=== PATIENT | female | born 1975 | race Caucasian/White ===

== ENCOUNTER 2017-08-12 11:58 | Day surgery (SDC) | payer OTHER ==
[~2017-08-12 11:58] MED LIST: CIPRO500 MG PO; INTEGRA F CAPS1 EACH PO; INTESTINEX680 MG PO; OMEPRAZOLE20 MG PO; PERCOCET 5/3251 TAB PO; RECTICARE30 GM TP; TRAM1TAB98 PO
== END 2017-08-12 16:10 | disposition home or self-care (01) ==
LOC: AMB-ENDOS 11:58
DX: C20 Malignant neoplasm of rectum (principal)

== ENCOUNTER 2019-03-16 06:10 | Day surgery (SDC) | payer OTHER | END 2019-03-16 09:45 | disposition home or self-care (01) | LOC: AMB-ENDOS 06:10 | DX: K64.2 Third degree hemorrhoids (principal); K64.4 Residual hemorrhoidal skin tags; R19.4 Change in bowel habit; C20 Malignant neoplasm of rectum ==